=== PATIENT | male | born 1985 | race Caucasian/White ===

== ENCOUNTER 2021-06-22 12:14 | Emergency (ER) | payer OTHER ==
[~2021-06-22] VITALS: Ht 188 cm; Wt 115.7 kg
--- NOTE | 2021-06-22 12:24 | NUR ---
lower back pain, 07/20, w/left thigh "burning" pain. Pt denies numbness/tingling CP, SOB, Dizziness, n/v, no other complaints, no distress noted.
[2021-06-22] MEDS ORDERED: KETOROLAC TROMETHAMINE 30 MG INJ IM ONE (12:45)
[2021-06-22] MEDS ORDERED: KETOROLAC TROMETHAMINE 30 MG INJ ONE (12:52)
[2021-06-22] MEDS ORDERED: HYDR-3980 PO (12:55)
[2021-06-22] MEDS ORDERED: PRED20TA PO (12:55)
--- NOTE | 2021-06-22 13:14 | NUR ---
PT WAS D/C'd TO HOME. D/C INSTRUCTIONS GIVEN TO THE PT BY DR CAT.
[2021-06-22 13:15] VITALS: BP 136/88
== END 2021-06-22 13:15 | disposition home or self-care (01) ==
LOC: ER 12:19
DX: M54.42 Lumbago with sciatica, left side (principal); R03.0 Elevated blood-pressure reading, without diagnosis of hypertension
CPT/HCPCS: 96372; 99283; J1885; A4663